=== PATIENT | male | born 1950 | race Caucasian/White ===

== ENCOUNTER 2020-12-05 22:15 | Emergency (ER) | payer OTHER, SELFPAY ==
--- NOTE | 2020-12-05 22:51 | PC.NURSE ---
MTS contacted by Refuse Driver Latasha.
--- NOTE | 2020-12-06 00:02 | ED.GENADULT ---
HPI - General Adult General Chief complaint: Cardiac Arrest/CPR Stated complaint: cardiac arrest/witnessed vfib Time Seen by Provider: 12/05/20 22:15 Source: EMS History of Present Illness HPI narrative: Patient is a 70 y/o male brought in by EMS for cardiac arrest. EMS reports that they were initially called for chest pain. Patient reportedly had been having chest pain for 3 days. When EMS arrived initially, patient was awake and talking. He then had seizure like activity and monitor showed V fib. He was defibrillated and given Amiodarone and Epi. CPR was started. He was intubated. Upon arrival in ED, he is in PEA. Related Data Allergies Allergy/AdvReac Type Severity Reaction Status Date / Time No Known Allergies Allergy Unverified 02/04/19 11:08 Review of Systems Review of Systems: ROS unobtainable: Yes unobtainable due to medical condition Exam Const: Orientation/consciousness: Other orientation findings (unresponsive) HENMT: Head: normal to inspection and atraumatic Ears: external ears normal General nose exam: Normal external nose present Mouth: Yes other (ET tube in place) Eyes: General: appearance normal, both eyes and all related structures Pupils: Fixed pupils Neck: Neck: normal visual inspection Chest: Chest palpation & inspection: normal inspection of the chest Other: Yony device in place with CPR Resp: Effort & Inspection: other (being manually bagged) Auscultation: clear to auscultation bilaterally Cardio: Other: no spontanous pulse, pulse present with CPR GI: Inspection: normal to inspection GI Palp: Yes Soft to palpation Skin: General skin exam: normal color and no rashes or lesions noted Neuro: General: other (no response to painful stimuli) Course Reevaluation(s) Reevaluation #1: Patient is coded according to ACLS protocol. CPR is continued with Yony device. He was given multiple dose of Epi and Bicarb. He remains in persistent PEA. He is pronounced at 22:39. Family is notifed Discharge Plan Discharge Clinical Impression: Cardiopulmonary arrest Chest pain Qualifiers: Chest pain type: unspecified Qualified Code(s): R07.9 - Chest pain, unspecified Patient Disposition: Condition: Follow-up/Referrals: Pretty,David Wade MD [Primary Care Provider] -
== END 2020-12-06 00:30 | disposition expired ==
PROVIDERS: Emergency Provider Emergency Medicine; PCP Family Medicine
DX: I46.9 Cardiac arrest, cause unspecified (principal); R07.9 Chest pain, unspecified
CPT/HCPCS: 92950; 99285; J0171; J0282